=== PATIENT | male | born 1945 | race Caucasian/White ===

== ENCOUNTER 2021-08-25 17:00 | Emergency (ER) | payer OTHER, BC ==
--- OUTSIDE RECORDS SUMMARY | 2021-08-25 17:04 | XMS REPORT | Continuity of Care Document ---
:1945 Author Organization [facility] t Address [address] [place] [address] [address]. [address] [place] [address] Care Team Providers Name Role Phone Vanessa Faria Attending Clinician Unavailable Nick Deleon PT Attending Clinician Unavailable Kimi TAPIA, L Attending Clinician Kenya PT Attending Clinician Unavailable Claudia PT, G Attending Clinician Unavailable Bienvenido INSTRUCTIONAL DESIGN MANAGER, F Attending Clinician Unavailable Doctor Unassigned, Name Attending Clinician Unavailable Physician, Primary or Family Admitting Clinician Unavailabl e Payers Payer Name Policy Type Policy Number Effective Date Expiration Date S ource Problems Condition Condition Condition Status Onset Resolution Last Treating Co mments Source Name Details Category Date Date Treatment Clinician Date Low back Low back Disease Active 2014-09 Unive rs pain pain 0-01 ity of without without 00:00: [place] sciatica sciatica 00 Medica l Branch Chronic Chronic Disease Active 2014-09 Univers atrial atrial 0-01 [place] Lower GI Lower GI Disease Active 2014-09 Unive rs bleed bleed 0-01 ity of 00:00: [place] 00 [facility] 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-30 ity of bleeding bleeding 00:00: [address] Branch Allergies, Adverse Reactions, Alerts Allergy Allergy Status Severity Reaction(s) Onset Inactive Treating Comm ents Source Name Type Date Date Clinician No Known DA Active [facility] 10-06 [place] [facility]ie 00:00: [facility] No Known DA Active [facility] 10-06 [place] Allergie 00:00: [facility] Hydrocod Propensi Active Unknown - Uni vers one-Acet ty to See comments 3-26 it y of aminophe adverse 00:00: [place] n reaction 00 Medical s to Branch drug No Known DA Active [facility] 10-15 [place] Allergie 00:00: [facility] No Known DA Active [facility] 10-15 [place] Allergie 00:00: [facility] s 00 [facility] No Known DA Active [facility]ergie 09-21 [place] 00:00: [facility]ope 00 [facility] No Known DA Active [facility] Allergie 04-08 [place] 00:00: [facility]ope 00 [facility]osp[facility] Social History Social Habit Start Date Stop Date Quantity Comments Source Sex Assigned At Uni versity [facility] Smoking Status Start Date Stop Date Source Never smoker [facility] Medical Branch Medications Ordered Filled Start Stop Current Ordering Indication Dosage Frequency Signature Comments Components Source Medication Medication Date Date Medication? Clinician (SIG) Name Name TAMSULOSIN Yes .4mg Take 0.4 Uni vers HCL 4-03 mg by ity of ([place]OSIN [place] ASPIRIN Yes Take by Univer s (ASPIR-81 4-03 mouth. ity of ORAL) 16:43: [address] Branch rivaroxaban Yes Take by Un neelam (XARELTO 4-03 mouth. ity of ORAL) 16:43: [place] [address] Medical Branch OMEPRAZOLE Yes Take by Uni vers ORAL 4-03 mouth. ity of 16:43: [place] [address] Medical Branch AMIODARONE Yes 200mg Take 200 Un neelam HCL 4-03 mg by ity of (AMIODARONE [place] diltiazem Yes 180mg Take 180 Uni vers (CARDIZEM 4-03 mg by ity of CD) 180 mg 16:43: mouth [place] 24 hr 24 daily. Medical [facility] Branch AMIODARONE 2019-0 Yes 200mg Take 200 Un neelam HCL 4-03 mg by ity of (AMIODARONE [place] TAMSULOSIN Yes .4mg Take 0.4 Uni vers HCL 4-03 mg by ity of (TAMSULOSIN [place] 24 [place] Branch ASPIRIN Yes Take by Univer s (ASPIR-81 4-03 mouth. ity of ORAL) 16:43: [place] [address] Medical Branch rivaroxaban Yes Take by Un neelam (XARELTO 4-03 mouth. ity of ORAL) 16:43: [place] [address] Medical Branch OMEPRAZOLE Yes Take by Uni vers ORAL 4-03 mouth. ity of 16:43: [place] [address] Medical Branch diltiazem Yes 180mg Take 180 Uni vers (CARDIZEM 4-03 mg by ity of CD) 180 mg 16:43: mouth [place] 24 hr 24 daily. Medical capsule Branch TAMSULOSIN Yes .4mg Take 0.4 Uni vers HCL 4-03 mg by ity of (TAMSULOSIN [place] ASPIRIN Yes Take by Univer s (ASPIR-81 4-03 mouth. ity of ORAL) 16:43: [place] [address] Medical Branch rivaroxaban Yes Take by Un neelam (XARELTO 4-03 mouth. ity of ORAL) 16:43: [place] [address] Medical Branch OMEPRAZOLE Yes Take by Uni vers ORAL 4-03 mouth. ity of 16:43: [place] [address] Medical Branch AMIODARONE Yes 200mg Take 200 Un neelam HCL 4-03 mg by ity of (AMIODARONE [place] diltiazem Yes 180mg Take 180 Uni vers (CARDIZEM 4-03 mg by ity of CD) 180 mg 16:43: mouth [place] 24 hr 24 daily. Medical capsule Branch TAMSULOSIN Yes .4mg Take 0.4 Uni vers HCL 4-03 mg by ity of (TAMSULOSIN [place] 24 [place] Branch ASPIRIN Yes Take by Univer s (ASPIR-81 4-03 mouth. ity of ORAL) 16:43: [place] [address] Medical Branch rivaroxaban Yes Take by Un neelam (XARELTO 4-03 mouth. ity of ORAL) 16:43: [place] [address] Medical Branch OMEPRAZOLE Yes Take by Uni vers ORAL 4-03 mouth. ity of 16:43: [place] [address] Medical Branch AMIODARONE Yes 200mg Take 200 Un neelam HCL 4-03 mg by ity of (AMIODARONE [place] diltiazem Yes 180mg Take 180 Uni vers (CARDIZEM 4-03 mg by ity of CD) 180 mg 16:43: mouth [place] 24 hr 24 daily. Medical capsule Branch TAMSULOSIN Yes .4mg Take 0.4 Uni vers HCL 4-03 mg by ity of (TAMSULOSIN [place] ASPIRIN Yes Take by Univer s (ASPIR-81 4-03 mouth. ity of ORAL) 16:43: [place] [address] Medical Branch rivaroxaban Yes Take by Un neelam (XARELTO 4-03 mouth. ity of ORAL) 16:43: [place] [address] Medical Branch OMEPRAZOLE Yes Take by Uni vers ORAL 4-03 mouth. ity of 16:43: [place] [address] Medical Branch AMIODARONE Yes 200mg Take 200 Un neelam HCL 4-03 mg by ity of (AMIODARONE [place] diltiazem Yes 180mg Take 180 Uni vers (CARDIZEM 4-03 mg by ity of CD) 180 mg 16:43: mouth [place] 24 hr 24 daily. Medical capsule Branch TAMSULOSIN Yes .4mg Take 0.4 Uni vers HCL 4-03 mg by ity of (TAMSULOSIN [place] ASPIRIN 0 Yes Take by Univer s (ASPIR-81 4-03 mouth. ity of ORAL) 16:43: [place] [address] Medical Branch rivaroxaban Yes Take by Un neelam (XARELTO 4-03 mouth. ity of ORAL) 16:43: [place] [address] Medical Branch OMEPRAZOLE Yes Take by Uni vers ORAL 4-03 mouth. ity of 16:43: [place] [address] Medical Branch AMIODARONE Yes 200mg Take 200 Un neelam HCL 4-03 mg by ity of (AMIODARONE [place] diltiazem Yes 180mg Take 180 Uni vers (CARDIZEM 4-03 mg by ity of CD) 180 mg 16:43: mouth [place] 24 hr 24 daily. Medical capsule Branch TAMSULOSIN Yes .4mg Take 0.4 Uni vers HCL 4-03 mg by ity of (TAMSULOSIN [place] ASPIRIN Yes Take by Univer s (ASPIR-81 4-03 mouth. ity of ORAL) 16:43: [address] Branch rivaroxaban Yes Take by Un neelam (XARELTO 4-03 mouth. ity of ORAL) 16:43: [address] Branch OMEPRAZOLE Yes Take by Uni vers ORAL 4-03 mouth. ity of 16:43: [address] Branch AMIODARONE Yes 200mg Take 200 Un neelam HCL 4-03 mg by ity of (AMIODARONE 16:[place] diltiazem Yes 180mg Take 180 Uni vers (CARDIZEM 4-03 mg by ity of CD) 180 mg 16:43: mouth [place] 24 hr 24 daily. Medical capsule Branch TAMSULOSIN Yes .4mg Take 0.4 Uni vers HCL 4-03 mg by ity of (TAMSULOSIN 16:[place] [address] [place] [address] Branch ASPIRIN Yes Take by Univer s (ASPIR-81 4-03 mouth. ity of ORAL) 16:43: [place] [address] Medical Branch rivaroxaban Yes Take by Un neelam (XARELTO 4-03 mouth. ity of ORAL) 16:43: [address] Branch OMEPRAZOLE Yes Take by Uni vers ORAL 4-03 mouth. ity of 16:43: [address] Branch AMIODARONE Yes 200mg Take 200 Un neelam HCL 4-03 mg by ity of (AMIODARONE [place] diltiazem Yes 180mg Take 180 Uni vers (CARDIZEM 4-03 mg by ity of CD) 180 mg 16:43: mouth [place] 24 hr 24 daily. Medical capsule Branch TAMSULOSIN Yes .4mg Take 0.4 Uni vers HCL 4-03 mg by ity of (TAMSULOSIN 16:[place] 24 [place] Branch ASPIRIN Yes Take by Univer s (ASPIR-81 4-03 mouth. ity of ORAL) 16:43: [place] [address] Medical Branch rivaroxaban Yes Take by Un neelam (XARELTO 4-03 mouth. ity of ORAL) 16:43: [place] [address] Medical Branch OMEPRAZOLE Yes Take by Uni vers ORAL 4-03 mouth. ity of 16:43: [place] [address] Medical Branch AMIODARONE Yes 200mg Take 200 Un neelam HCL 4-03 mg by ity of (AMIODARONE 16:[place] diltiazem Yes 180mg Take 180 Uni vers (CARDIZEM 4-03 mg by ity of CD) 180 mg 16:43: mouth [place] 24 hr 24 daily. Medical capsule Branch TAMSULOSIN Yes .4mg Take 0.4 Uni vers HCL 4-03 mg by ity of (TAMSULOSIN 16:[place] ASPIRIN Yes Take by Univer s (ASPIR-81 4-03 mouth. ity of ORAL) 16:43: [place] [address] Medical Branch rivaroxaban Yes Take by Un neelam (XARELTO 4-03 mouth. ity of ORAL) 16:43: [place] [address] Medical Branch OMEPRAZOLE Yes Take by Uni vers ORAL 4-03 mouth. ity of 16:43: [place] [address] Medical Branch AMIODARONE Yes 200mg Take 200 Un neelam HCL 4-03 mg by ity of (AMIODARONE 16:[place] diltiazem Yes 180mg Take 180 Uni vers (CARDIZEM 4-03 mg by ity of CD) 180 mg 16:43: mouth [place] 24 hr 24 daily. Medical capsule Branch Procedures Procedure Date / Time Performed Performing Clinician [facility] e PHYSICIAN ORDERS 2019-04-12 05:01:00 Doctor Unassigned, No Unive [facility] Name Medical Branch Encounters Start End Encounter Admission Attending Care Care Encounter Source Date/Time Date/Time Type Type Clinicians Facility Department ID 2020-10-06 2020-10-06 Outpatient JONATHON FariaTO [id number] [facility] 13:45:00 13:45:00 Yannick [id number] [place] [facility] 2020-09-25 2020-09-25 Outpatient JONATHON Faria RADI [id number] [facility] 13:45:00 13:45:00 Yannick [id number] [place] [facility] 2019-05-03 2019-05-03 Ancillary Nick [facility] [id number] 08:38:53 14:16:06 Visit Patricio Deleon [id number] [place] 4.2.7.2.686 Professio [phone] [facility] 179 [facility] 2019-05-03 2019-05-03 Ancillary Regla Bateman [facility] 1 .2.840.114 [id number] [facility] 08:38:53 14:16:06 Visit Aleksandar Bolden 350.1.13.10 [place] [phone] [facility] 179 Branch [facility] 2019-04-29 2019-04-29 Ancillary Tasha Zambrano [facility] 1.2.840.11 [id number] [facility] 08:39:52 09:38:09 Visit Aleksandar Bolden [id number] [place] [phone] [facility] 179 [facility] 2019-04-29 2019-04-29 Ancillary Kenya [facility] 1.2.881.074 [id number] 08:39:52 09:38:09 Visit Tasha Curry 350.1.13.10 [place] 4.2.7.2.686 Professio [phone] [facility] 179 [facility] 2019-04-26 2019-04-26 Ancillary Kiara Taylor [facility] 1.2.840. 114 [id number] [facility] 08:42:52 11:22:17 Visit Aleksandar Bolden 350.1.13.10 [place] [phone] N[facility] dical nal 179 Branch Building 2019-04-26 2019-04-26 Ancillary Claudia [facility] 1.2.498.390 [id number] 08:42:52 11:22:17 Visit Kiara Duvall Patricio 350.1.13.10 [place] 4.2.7.2.686 Professio [phone] [facility] 179 Building 2019-04-22 2019-04-22 Ancillary Bienvenido Justin Portillo [facility] 1.2.840. 114 [id number] [facility] 08:44:02 09:29:02 Visit Aleksandar Bolden 350.1.13.10 [place] [phone] [facility] dical nal 179 Branch Building 2019-04-22 2019-04-22 Ancillary Bienvenido [facility] 1.2.651.522 [id number] 08:44:02 09:29:02 Visit Justin Curry 350.1.13.10 [place] 4.2.7.2.686 Professio [phone] [facility] 179 Building 2019-04-19 2019-04-19 Ancillary Justin Faria [facility] 1.2.840. 114 [id number] [facility] 08:46:38 09:31:38 Visit Aleksandar Bolden 350.1.13.10 it[place] [phone] N[place] dical nal 179 Branch Building 2019-04-19 2019-04-19 Ancillary Bienvenido [facility] 1.2.130.037 [id number] 08:46:38 09:31:38 Visit Justin Curry 350.1.13.10 [place] 4.2.7.2.686 Professio [phone] nal 179 Building 2019-04-07 2019-04-18 Ancillary Regla Bateman [facility] 1 .2.840.114 [id number] [facility] 13:49:38 21:54:54 Visit Aleksandar Bolden 350.1.13.10 [place] [phone] [facility] dical nal 179 [facility] 2019-04-07 2019-04-18 Ancillary Nick [facility] 1.2.166.533 [id number] 13:49:38 21:54:54 Visit Patricio Deleon 350.1.13.10 [place] 4.2.7.2.686 Professio [phone] [facility] 179 [facility] 2019-04-15 2019-04-15 Ancillary Justin Faria [facility] 1.2.840. 114 [id number] [facility] 08:46:50 09:31:50 Visit Aleksandar Bolden 350.1.13.10 it[place] [phone] [facility] 179 [facility] 2019-04-12 2019-04-12 Ancillary Justin Faria [facility] 1.2.840. 114 [id number] [facility] 08:51:52 09:36:52 Visit Aleksandar Bolden 350.1.13.10 ity [place] [phone] N[facility] dical [facility] 179 [facility] 2019-04-12 2019-04-12 Orders Doctor FERRO 1.2.840.114 [id number] 00:00:00 00:00:00 Only Unassigned, GIO 350.1.13.10 ity of [place] [facility] 4.2.7.2.686 [place] as [phone] [facility] dany 009 Branch Results Test Description Test Time Test Comments Results Result [facility] e Comments - MRI UPPER EXT 2020-10-09 W/CONT RT 10:22:00 [facility] 1945 Sex: M Patient Name: SABIHA RUEDA Unit No: [id number] EXAMS: CPT CODE: [id number] MRI UPPER EXT W/[place] [address] MRI OF THE RIGHT ARM WITH GADOLINIUM AND ADDITIONAL SEQUENCES DIAGNOSIS: The lesion in the short head of the biceps muscle has been evaluated with gadolinium and postcontrast imaging. Comparison is made with the initial examination from September 25, 2020. The lesion appears smaller on the current examination and the signal characteristics within it have changed consistent with an evolving hematoma and increased methemoglobin. There is only rim enhancement of the lesion and mild enhancement in the surrounding muscle. These findings are most consistent with a resolving intramuscular hematoma without a tumor. COMMENT: Scans were performed with T1 weighting and fat saturation postcontrast in the sagittal, axial and coronal planes and in the axial and sagittal planes with T1 weighting with and without fat saturation before contrast administration. The lesion in the short head of the biceps muscle has evolved as compared with the initial study. No other areas of abnormal enhancement are seen. No other lesions are identified. at 1022 Reported and signed by: Kuldip Black MD CC: Yannick Faria MD Technologist: Marilyn Faria, RT(R) Transcribed D/ (1022) t.SDR.[facility] NAME: SABIHA RUEDA [address] [facility] PHYS: Yannick Yu : 1945 AGE: 75 SEX: M [place], [place] [address] LOC: Y.MRI PHONE #: [phone] EXAM DATE: 10/06/2020 STATUS: DEP CLI FAX #: [phone] RAD #: D/C DT PAGE 1 Signed Report Patient Name: SABIHA RUEDA Unit No: [id number] EXAMS: CPT CODE: [id number] MRI UPPER EXT W/[place] [address] <Continued> Orig Print D/T: S: 10/09/2020 (1025) [place] [facility] NAME: SABIHA RUEDA [address] [facility] PHYS: Yannick Yu : 1945 AGE: 75 SEX: M [place], [place] [address] LOC: Y.MRI PHONE #: [phone] EXAM DATE: 10/06/2020 STATUS: DEP CLI FAX #: [phone] RAD #: D/C DT PAGE 2 Signed Report BLOOD UREA NITROGEN 2020-10-06 14:32:00 Test Item Value Reference Range Interpretation Comme nts BLOOD UREA NITROGEN (test code = BUN) 20 mg/dL 7-18 H SPECIMEN COMMENT: MRI RIGHT SHOULDER WITH CONTRASTCREATININE W ESTIMATED GFR 2020-10-06 14:32:00 Test Item Value Reference Range Interpretation Comments GLOMERULAR FILTRATION 52.6 >60 Unit o f measure: RATE (test code = GFR) mL/mi n/1.73 [id number] Range:Healthy A dults >90 mL/min/1.73 m2 For Chronic Kidney Disease: St age II Mild Dec rease in GFR 6 0-90 Stage III Moderate Decrea se in GFR 30-59 Stage IV Se hui Decrease in GFR 15-29 Stage V Kidney Failur e <15 CREATININE (test code = 1.32 mg/dL 0.55-1.30 H CREAT) SPECIMEN COMMENT: MRI RIGHT SHOULDER WITH CONTRAST- MRI UPPER EX W/O CONT RT 2020-09-26 10:31:00 [facility] 1945 Sex: M Patient Name: SABIHA RUEDA Unit No: [id number] EXAMS: CPT CODE: [id number] MRI UPPER EX W/[place] [address] MRI RIGHT UPPER ARM WITHOUT CONTRAST DIAGNOSIS: 1. There is a large nonspecific intramuscular mass lesion present within the coracoi-brachialismuscle belly and posterior fibers of the biceps muscle belly mid left upper extremity level. The mass measures approximately 6 x 3 x 1.5 cm in size. Increased T1-weighted signal within the mass lesion suggests methemoglobin related to subacute hematoma. This mass is nonspecificand may represent a hematoma related to relatively recent trauma. Please correlate with the clinical examination and history. In the appropriate clinical setting a neoplastic lesion is also considered. This may be further evaluated with MRI with IV contrast and/or ultrasound with Doppler to further characterize the described abnormality. COMMENT: Multiplanar, multisequence MRI is obtained of the left upper arm without contrast. Intramuscular mass lesion as described above. Recommendations are as above. at 1031 Reported and signed by: Jadiel Huber MD CC: Yannick Faria MD Technologist: JEANETTE DALY Transcribed D/ (1031) [facility] [place] [facility] NAME: SABIHA RUEDA [address] [facility] PHYS: Yannick Yu : 1945 AGE: 75 SEX: M [place] [address] LOC: Y.MRI PHONE #: [phone] EXAM DATE: 09/25/2020 STATUS: DEP CLI FAX #: [phone] RAD #: D/C DT PAGE 1 Signed Report Patient Name: SABIHA RUEDA Unit No: [id number] EXAMS: CPT CODE:[id number] MRI UPPER EX W/[place] [address] <Continued> Orig Print D/T: S: 09/26/2020 (1034)[facility] [place] [facility] NAME: SABIHA RUEDA [address] [facility] PHYS: Yannick Yu : 1945GE: 75 SEX: M [place] [address] LOC: Y.MRI PHONE #: [phone] EXAM DATE: 09/25/2020 STATUS: DEP CLI FAX #: [phone] RAD #: D/C DT PAGE 2 Signed Report- XR SHOULDER 1 V [id number] 09:45:00 Patient Name: SABIHA RUEDA Unit No: [id number] EXAMS: CPT CODE: [id number] XR SHOULDER [address] [place] [address] SINGLE AP VIEW OF THE RIGHT SHOULDER Comment: The patient is status post total right shoulder arthroplasty. The prosthesis appears to be in good position. at 0945 Reported and signed by: Jadiel Huber MD CC: Yannick Faria MD Technologist: SAPPHIRE ROMAN, RT(R) Transcribed D/ (0945) YanethGVG [facility] NAME: SABIHA RUEDA [address] [facility] PHYS: Yannick Yu : 1945 AGE: 73 SEX: M [place] [address] LOC: Y.303 A PHONE #: [phone] EXAM DATE: 11/03/2018 STATUS: ADM IN FAX #: [phone] RAD #: D/C DT PAGE 1 Signed Report Patient Name: SABIHA RUEDA Unit No: [id number] EXAMS: CPT CODE: [id number] XR SHOULDER 1 V RT [id number] <Continued> Orig Print D/T: S: 11/04/2018 (0949) [facility] NAME: SABIHA RUEDA [address] [facility] PHYS: Yannick Yu : 1945 AGE: 73 SEX: M [place], [place] [address]JCJI NO: [id number] LOC: Y.303 A PHONE #: [phone] EXAM DATE: 11/03/2018 STATUS: ADM IN FAX #: [phone] RAD #: D/C DT PAGE 2 Signed ReportCBC W/MANUAL [id number] 09:26:00 Test Item Value Reference Range Interpretation Comments WHITE BLOOD CELL (test code 13.2 K/mm3 5.7-10.5 H = WBC) RED BLOOD CELL (test code = 4.22 M/mm3 4.2-5.4 N RBC) HEMOGLOBIN (test code = HGB) 11.3 g/dL 12-16 L HEMATOCRIT (test code = HCT) 34.3 % 37-47 L MEAN CELL VOLUME (test code 81 fL 80-98 N = MCV) MEAN CELL HGB (test code = 26.8 pg 27-34 L MCH) MEAN CELL HGB CONCENTRATION 32.9 g/dL 30.8-34.1 N (test code = MCHC) RED CELL DISTRIBUTION WIDTH 12.8 % 11-16 N (test code = RDW) PLT (test code = PLT) 174 K/mm3 130-400 N MEAN PLATELET VOLUME (test 10.5 fL 8.9-12.1 N code = MPV) STAIN ACCEPTABILITY (test STAIN ACCEPTABLE code = STN ACCEPTABLE) CELLS COUNTED (test code = 100 >100 TCC) SEGMENTED NEUTROPHILS (test 90 % 50-65 H code = SEG) BAND NEUTROPHIL (test code = 3 % 0-10 N BAND) LYMPHOCYTE (test code = 3 % 20-40 LL LYMPH) MONOCYTE (test code = MON) 3 % 2-9 N BASOPHIL (test code = BASO) 1 % 0.3-1.0 N NUCLEATED RED BLOOD CELL 0 % 0-0 N (test code = NRBC) BASIC METABOLIC [id number] 06:50:00 Test Item Value Reference Range Interpretation Comments SODIUM (test code = 140 mmol/L 136-145 N NA) POTASSIUM (test code = 4.4 mmol/L 3.5-5.1 N K) CHLORIDE (test code = 105.0 mmol/L 98-107 N CL) CARBON DIOXIDE (test 25.6 mmol/L 21-32 N code = CO2) GLUCOSE (test code = 147 mg/dL 70-110 H GLU) BLOOD UREA NITROGEN 11 mg/dL 7-18 N (test code = BUN) GLOMERULAR FILTRATION 72.8 >60 Unit o f measure: RATE (test code = GFR) mL/mi n/1.73 [id number] Range:Healthy Adults >90 mL/min/1.73 m2 For Chronic Kidney Disease: St age II Mild Decrease in GFR 60-90 St age III Moderate Decrease in GFR 30-59 Stage IV Severe Decre ase in GFR 15- 29 Stage V Kidney Failure <15 CREATININE (test code 1.00 mg/dL 0.55-1.30 N = CREAT) CALCIUM (test code = 8.2 mg/dL 8.2-10.1 N CA) CBC W/MANUAL [id number] 06:03:00 Test Item Value Reference Range Interpretation Comments WHITE BLOOD CELL (test code = WBC) 13.2 K/mm3 5.7-10.5 H RED BLOOD CELL (test code = RBC) 4.22 M/mm3 4.2-5.4 N HEMOGLOBIN (test code = HGB) 11.3 g/dL 12-16 L HEMATOCRIT (test code = HCT) 34.3 % 37-47 L MEAN CELL VOLUME (test code = MCV) 81 fL 80-98 N MEAN CELL HGB (test code = MCH) 26.8 pg 27-34 L MEAN CELL HGB CONCENTRATION (test 32.9 g/dL 30.8-34.1 N code = MCHC) RED CELL DISTRIBUTION WIDTH (test 12.8 % 11-16 N code = RDW) PLT (test code = PLT) 174 K/mm3 130-400 N MEAN PLATELET VOLUME (test code = 10.5 fL 8.9-12.1 N MPV) STAIN ACCEPTABILITY (test code = STN ACCEPTABLE) CELLS COUNTED (test code = TCC) >100 SEGMENTED NEUTROPHILS (test code = % 50-65 SEG) LYMPHOCYTE (test code = LYMPH) % 20-40 NUCLEATED RED BLOOD CELL (test 0 % 0-0 N code = NRBC) CBC W/AUTO [id number] 06:03:00 Test Item Value Reference Range Interpretation Comments WHITE BLOOD CELL (test 13.2 K/mm3 5.7-10.5 H code = WBC) RED BLOOD CELL (test 4.22 M/mm3 4.2-5.4 N code = RBC) HEMOGLOBIN (test code = 11.3 g/dL 12-16 L HGB) HEMATOCRIT (test code = 34.3 % 37-47 L HCT) MEAN CELL VOLUME (test 81 fL 80-98 N code = MCV) MEAN CELL HGB (test code 26.8 pg 27-34 L = MCH) MEAN CELL HGB 32.9 g/dL 30.8-34.1 N CONCENTRATION (test code = MCHC) RED CELL DISTRIBUTION 12.8 % 11-16 N WIDTH (test code = RDW) PLT (test code = PLT) 174 K/mm3 130-400 N MEAN PLATELET VOLUME 10.5 fL 8.9-12.1 N (test code = MPV) NEUTROPHIL % (test code 91.0 % 45-70 H = NT%) LYMPHOCYTE % (test code 3.6 % 20-40 L = LY%) MONOCYTE % (test code = 4.8 % 3-10 N MO%) EOSINOPHIL % (test code 0.0 % 1-5 L = EO%) BASOPHIL % (test code = 0.1 % 0.0-1.1 N BA%) NEUTROPHIL # (test code 12.05 K/mm3 2.00-7.50 H = NT#) LYMPHOCYTE # (test code 0.47 K/mm3 1.50-4.00 L = LY#) MONOCYTE # (test code = 0.63 K/mm3 0.2-0.8 N MO#) EOSINOPHIL # (test code 0.00 K/mm3 0.04-0.4 L = EO#) BASOPHIL # (test code = 0.01 K/mm3 0.02-0.10 L BA#) MANUAL DIFF REQUIRED YES MANUAL DIFF MANUAL DIFF (test code = MDIFF) REQUIRED . NUCLEATED RED BLOOD CELL 0 % 0-0 N (test code = NRBC) CBC W/MANUAL [id number] 06:03:00 Test Item Value Reference Range Interpretation Comments STAIN ACCEPTABILITY (test code = STN ACCEPTABLE) CELLS COUNTED (test code = TCC) >100 SEGMENTED NEUTROPHILS (test code = SEG) % 50-65 LYMPHOCYTE (test code = LYMPH) % 20-40 PROTHROMBIN [id number] 12:36:00 Test Item Value Reference Range Interpretation Comments PROTHROMBIN TIME 22.2 secs 10.1-12.5 H PATIENT (test code = PTP) INTERNATIONAL NORMAL 1.96 <2.0 RECOMME NDED THERAPEUTIC RATIO (test code = RANGE FOR ORAL INR) ANTICOAGULANTTR EATMENT: CONDI TION INRProphylaxis of venous thrombos is in 2.0 - 3.0 high-risk medic al or surgical patientsTreatme nt of venous thrombos is 2.0 - 3.0Prevention o f embolism 2.0 - 3.0Prevention o f recurrent embol ism, or 3.0 - 4. 5 patients with mechanical pros thetic intravascular v carrasquillo SPECIMEN COMMENT: ON XARELTOIS PATIENT ON ANTICOAGULANTS ? YLIST ANTICOAGULANT/ANTI PLT MEDICATION :OtherHas Lab been notified if Patient is on Heparin Drip? NOIf Yes, order CBC, OCCULT BLOOD, PT every other day N THROMBOPLASTIN TIME [id number] 12:36:00 Test Item Value Reference Range Interpretation Comments PTT ACTIVATED (test 49.1 secs 24.9-37.0 HH VERIFIED BY REPEAT code = APTT) ANALYSIS.CRITIC AL VALUE CALLED TO ABDULLAHI CHOUDHARY/DR. MCCARTY NREAD BACK & CONFIRME D? JUNIOR Jarquin.LAB.[facility] 10/15 1236 SPECIMEN COMMENT: ON XARELTOIS PATIENT ON ANTICOAGULANTS ? YLIST ANTICOAGULANT/ANTI PLT MEDICATION :OtherHas Lab been notified if Patient is on Heparin Drip? NOIf Yes, order CBC, OCCULT BLOOD, PT every other day N COMPREHENSIVE METABOLIC [id number] 12:24:00 Test Item Value Reference Range Interpretation Comments SODIUM (test code = 141 mmol/L 136-145 N NA) POTASSIUM (test code = 3.5 mmol/L 3.5-5.1 N K) CHLORIDE (test code = 104.0 mmol/L 98-107 N CL) CARBON DIOXIDE (test 23.5 mmol/L 21-32 N code = CO2) GLUCOSE (test code = 109 mg/dL 70-110 N GLU) BLOOD UREA NITROGEN 11 mg/dL 7-18 N (test code = BUN) GLOMERULAR FILTRATION 58.5 >60 Unit o f measure: RATE (test code = GFR) mL/mi n/1.73 [id number] Range:Healthy Adults >90 mL/min/1.73 m2 For Chronic Kidney Disease: St age II Mild Decrease in GFR 60-90 St age III Moderate Decrease in GFR 30-59 Stage IV Severe Decre ase in GFR 15- 29 Stage V Kidney Failure <15 CREATININE (test code 1.21 mg/dL 0.55-1.30 N = CREAT) TOTAL PROTEIN (test 6.0 g/dL 6.4-8.2 L code = PROT) ALBUMIN (test code = 3.6 g/dL 3.4-5.0 N ALB) GLOBULIN (test code = 2.4 g/dL 2.2-4.2 N GLOB) ALBUMIN/GLOBULIN RATIO 1.5 0.7-2.0 N (test code = A/G) CALCIUM (test code = 8.4 mg/dL 8.2-10.1 N CA) BILIRUBIN TOTAL (test 0.57 mg/dL 0.2-1.00 N code = BILT) SGOT/AST (test code = 25.0 U/L 15-37 N AST) SGPT/ALT (test code = 26.0 U/L 12-78 N Please note new ALT) normal range. ALKALINE PHOSPHATASE 88 U/L 46-116 N TOTAL (test code = ALKP) CBC W/AUTO [id number] 11:53:00 Test Item Value Reference Range Interpretation Comments WHITE BLOOD CELL (test code = WBC) 4.5 K/mm3 5.7-10.5 L RED BLOOD CELL (test code = RBC) 4.82 M/mm3 4.2-5.4 N HEMOGLOBIN (test code = HGB) 13.1 g/dL 12-16 N HEMATOCRIT (test code = HCT) 40.2 % 37-47 N MEAN CELL VOLUME (test code = MCV) 83 fL 80-98 N MEAN CELL HGB (test code = MCH) 27.2 pg 27-34 N MEAN CELL HGB CONCENTRATION (test 32.6 g/dL 30.8-34.1 N code = MCHC) RED CELL DISTRIBUTION WIDTH (test 14.0 % 11-16 N code = RDW) PLT (test code = PLT) 175 K/mm3 130-400 N MEAN PLATELET VOLUME (test code = 10.0 fL 8.9-12.1 N MPV) NEUTROPHIL % (test code = NT%) 70.6 % 45-70 H LYMPHOCYTE % (test code = LY%) 19.0 % 20-40 L MONOCYTE % (test code = MO%) 5.3 % 3-10 N EOSINOPHIL % (test code = EO%) 4.2 % 1-5 N BASOPHIL % (test code = BA%) 0.7 % 0.0-1.1 N NEUTROPHIL # (test code = NT#) 3.20 K/mm3 2.00-7.50 N LYMPHOCYTE # (test code = LY#) 0.86 K/mm3 1.50-4.00 L MONOCYTE # (test code = MO#) 0.24 K/mm3 0.2-0.8 N EOSINOPHIL # (test code = EO#) 0.19 K/mm3 0.04-0.4 N BASOPHIL # (test code = BA#) 0.03 K/mm3 0.02-0.10 N MANUAL DIFF REQUIRED (test code = NO MANUAL DIFF MDIFF) PLATELET MORPHOLOGY REQUIRED (test NORMAL code = PLTMR)
[2021-08-25 17:54] LABS: Urine Blood 1+ (Negative); Urine Glucose Negative (Negative); Urine Protein Negative (Negative); Urine Specific Gravity 1.025 (1.005-1.030); Urine pH 5.5 (5.0-7.0)
[2021-08-25 18:22] LABS: Absolute Lymphocytes (CBC) 0.7 K/uL (0.7-4.9); Basophils % 0.6 % (0-1.3); Hematocrit 36.8 % (39.6-49.0); Lymphocytes % 8.9 % (15.3-44.8); MPV 7.9 fL (7.6-11.3); RBC Red Blood Cell Count 5.06 M/uL (4.33-5.43)
[2021-08-25 18:26] LABS: Albumin 3.2 g/dL (3.4-5.0); Bilirubin Direct 0.2 mg/dL (0-0.2); Bilirubin Total 0.7 mg/dL (0.2-1.0); Protein, Total 6.7 g/dL (6.4-8.2)
[2021-08-25] MEDS ORDERED: CEFTRIAXONE 1000 MG/VIAL ONE (18:29)
--- NOTE | 2021-08-25 18:44 | RAD REPORT ---
EXAM DESCRIPTION: US - Scrotum Testicles - 08/25/2021 6:15 pm CLINICAL HISTORY: PAIN COMPARISON: No comparisons FINDINGS: The right testicle 3.7 x 1.7 x 2 cm with volume of 6.6 cc. No intratesticular masses or ev idence of testicular torsion. The left testicle 3.4 by 2.3 x 2.3 cm with volume of 9.2 cc. No intratesticular masses or evidence of testicular torsion. Right epididymal cyst measuring 1.4 cm. Left-sided epididymal cysts are noted. Complex moderate left-sided hydrocele. Small simple appearing right hydrocele. IMPRESSION: Bilateral hydroceles, complex on the left side. Bilateral testicular blood flow is prese nt.
--- NOTE | 2021-08-25 18:50 | ER ---
Nurse's Notes [facility] Name: Rogelio Mckeon Age: 76 yrs Sex: Male : 1945 Arrival Date: 08/25/2021 Time: 17:02 Bed 15 Private MD: Clemente Braun V Diagnosis: Epididymo-orchitis;Hydrocele, unspecified Presentation: 08/25 17:16 Chief complaint: Patient states: went to Dr. Braun on Friday was started on abx iw (cefuroxime), has had fever and body aches and blood in urine , testicles started swelling, abx was changed to amoxicillin and now testicles are more swollen and painful. Coronavirus screen: At this time, the client does not indicate any symptoms associated with coronavirus-19. Ebola Screen: Patient negative for fever greater than or equal to 101.5 degrees Fahrenheit, and additional compatible Ebola Virus Disease symptoms Patient denies exposure to infectious person. Patient denies travel to an Ebola-affected area in the 21 days before illness onset. No symptoms or risks identified at this time. Initial Sepsis Screen: Does the patient meet any 2 criteria? No. Patient's initial sepsis screen is negative. Does the patient have a suspected source of infection? Yes:. Risk Assessment: Do you want to hurt yourself or someone else? Patient reports no desire to harm self or others. Onset of symptoms was August 20, 2021. 17:16 Method Of Arrival: Ambulatory iw 17:16 Acuity: SILVINA 3 iw Triage Assessment: 17:18 : Reports swollen scrotum. jg9 Historical: - Allergies: 17:19 No Known Allergies; iw - PMHx: 17:18 Atrial Fib; Hernia; iw - Immunization history:: Client reports receiving the 2nd dose of the Covid vaccine, Client reports receiving the 1st dose of the Covid vaccine, Pneumococcal vaccine is up to date, Flu vaccine is up to date. - Social history:: Patient/guardian denies using alcohol, street drugs, The patient lives with family, Smoking status: Patient denies any tobacco usage or history of. - Family history:: not pertinent. Screenin:25 Abuse screen: Denies threats or abuse. Denies injuries from another. Nutritional jg9 screening: No deficits noted. Tuberculosis screening: No symptoms or risk factors identified. Fall Risk None identified. Assessment: 17:25 General: Appears in no apparent distress. Behavior is calm, cooperative, appropriate jg9 for age. Pain: Complains of pain in pelvis-scrotum Pain began 2-3 days ago. Is continuous, Alleviated by rest, cold application, Aggravated by increased activity, Noted to be Also complains of no other associated symptoms. Neuro: No deficits noted. Cardiovascular: No deficits noted. Respiratory: No deficits noted. GI: No deficits noted. EENT: No deficits noted. Derm: No deficits noted. Musculoskeletal: No deficits noted. Vital Signs: 17:16 BP 129 / 100; Pulse 68; Resp 16; Temp 98.9; Pulse Ox 98% on R/A; Weight 81.65 kg; iw Height 5 ft. 11 in. (180.34 cm); 17:45 BP 128 / 76; Pulse 63; Resp 17 S; Pulse Ox 100% on R/A; jg9 18:30 BP 136 / 63; Pulse 61; Resp 17 S; Pulse Ox 100% on R/A; jg9 18:50 BP 132 / 70; Pulse 64; Resp 14; Pulse Ox 100% on R/A; jg9 17:16 Body Mass Index 25.10 (81.65 kg, 180.34 cm) iw ED Course: 17:02 Patient arrived in ED. as 17:02 Clemente Braun MD is Private Physician. as 17:18 Triage completed. iw 17:25 Arm band placed on right wrist. jg9 17:25 Patient has correct armband on for positive identification. Bed in low position. Call jg9 light in reach. Warm blanket given. 17:26 Carlos Liang MD is Attending Physician. ma2 17:35 Virginia Delong is Primary Nurse. jg9 17:45 Inserted saline lock: 22 gauge in right antecubital area, using aseptic technique. jg9 18:15 US Scrotum Testicles In Process Unspecified. EDMS 18:39 Resting quietly. Awaiting lab results, Awaiting radiology results. Pt visited by . jg9 18:49 Ernie Floyd MD is Referral Physician. ma2 18:51 Resting quietly. Awaiting disposition. jg9 18:59 No provider procedures requiring assistance completed. jg9 19:00 IV discontinued. jg9 Administered Medications: 18:45 Drug: Rocephin (cefTRIAXone) 1 grams Route: IV; Rate: calculated rate; Site: left 9 antecubital; 18:52 Follow up: Response: No adverse reaction jg9 19:00 Follow up: IV Status: Completed infusion; IV converted to saline lock jg9 Outcome: 18:49 Discharge ordered by MD. ardon 18:59 Discharged to home ambulatory, with significant other. jg9 18:59 Condition: stable 18:59 Discharge instructions given to patient, significant other, Instructed on discharge instructions, Demonstrated understanding of instructions, follow-up care, medications, Prescriptions given X 2. 19:01 Patient left the ED. jg9 Signatures: Dispatcher [employer] EDKathy Ames Irene, RN RN Carlos Green MD MD ma2 Gilmore, Jennifer jg9 Corrections: (The following items were deleted from the chart) 17:19 17:16 Chief complaint: Patient states: went to Dr. Braun on Friday was started on abx , iw has had fever and body aches and blood in urine , testicles started swelling, abx was changed adn now testicles are more swollen and painful iw
--- NOTE | 2021-08-25 18:50 | EDPHYS ---
Physician Documentation [facility] [place], [place] Name: Rogelio Mckeon Age: 76 yrs Sex: Male : 1945 Arrival Date: 08/25/2021 Time: 17:02 Bed 15 Private MD: Clemente Braun V ED Physician Carlos Liang HPI: 08/25 18:01 This 76 yrs old Male presents to ER via Ambulatory with complaints of Urinary Problem - ma2 blood. 18:01 The patient presents with swelling, that is moderate, Left testicles. Onset: The ma2 symptoms/episode began/occurred gradually, 1 day(s) ago. Associated signs and symptoms: Pertinent negatives: constipation, dysuria, hematuria, vomiting. Severity of symptoms: At their worst the symptoms were moderate, in the emergency department the symptoms are unchanged. The patient has not experienced similar symptoms in the past. Historical: - Allergies: 17:19 No Known Allergies; iw - PMHx: 17:18 Atrial Fib; Hernia; iw - Immunization history:: Client reports receiving the 2nd dose of the Covid vaccine, Client reports receiving the 1st dose of the Covid vaccine, Pneumococcal vaccine is up to date, Flu vaccine is up to date. - Social history:: Patient/guardian denies using alcohol, street drugs, The patient lives with family, Smoking status: Patient denies any tobacco usage or history of. - Family history:: not pertinent. ROS: 18:01 Constitutional: Negative for fever, chills, and weight loss. ma2 18:01 All other systems are negative. Exam: 18:01 Constitutional: This is a well developed, well nourished patient who is awake, alert, ma2 and in no acute distress. Eyes: Pupils equal round and reactive to light, extra-ocular motions intact. Lids and lashes normal. Conjunctiva and sclera are non-icteric and not injected. Cornea within normal limits. Periorbital areas with no swelling, redness, or edema. ENT: Nares patent. No nasal discharge, no septal abnormalities noted. Tympanic membranes are normal and external auditory canals are clear. Oropharynx with no redness, swelling, or masses, exudates, or evidence of obstruction, uvula midline. Mucous membranes moist. Neck: Trachea midline, no thyromegaly or masses palpated, and no cervical lymphadenopathy. Supple, full range of motion without nuchal rigidity, or vertebral point tenderness. No Meningismus. Chest/axilla: Normal chest wall appearance and motion. Nontender with no deformity. No lesions are appreciated. Cardiovascular: Regular rate and rhythm with a normal S1 and S2. No gallops, murmurs, or rubs. Normal PMI, no JVD. No pulse deficits. Respiratory: Lungs have equal breath sounds bilaterally, clear to auscultation and percussion. No rales, rhonchi or wheezes noted. No increased work of breathing, no retractions or nasal flaring. Abdomen/GI: Soft, non-tender, with normal bowel sounds. No distension or tympany. No guarding or rebound. No evidence of tenderness throughout. Skin: Warm, dry with normal turgor. Normal color with no rashes, no lesions, and no evidence of cellulitis. MS/ Extremity: Pulses equal, no cyanosis. Neurovascular intact. Full, normal range of motion. Neuro: Awake and alert, GCS 15, oriented to person, place, time, and situation. Cranial nerves II-XII grossly intact. Motor strength 5/5 in all extremities. Sensory grossly intact. Cerebellar exam normal. Normal gait. 18:01 : CVA tenderness, is absent, Male external genitalia: normal, swelling, of the left testicle is noted, that is mild, tenderness, that is moderate. Vital Signs: 17:16 BP 129 / 100; Pulse 68; Resp 16; Temp 98.9; Pulse Ox 98% on R/A; Weight 81.65 kg; iw Height 5 ft. 11 in. (180.34 cm); 17:45 BP 128 / 76; Pulse 63; Resp 17 S; Pulse Ox 100% on R/A; jg9 18:30 BP 136 / 63; Pulse 61; Resp 17 S; Pulse Ox 100% on R/A; jg9 18:50 BP 132 / 70; Pulse 64; Resp 14; Pulse Ox 100% on R/A; jg9 17:16 Body Mass Index 25.10 (81.65 kg, 180.34 cm) iw MDM: 17:26 Patient medically screened. ma2 18:01 Differential diagnosis: UTI, prostatitis, urethritis, Likely orchitis, vital signs ma2 within normal limits, patient is already on amoxicillin, today took the first dose. 18:48 Data reviewed: vital signs, nurses notes. Counseling: I had a detailed discussion with [facility] the patient and/or guardian regarding: the historical points, exam findings, and any diagnostic results supporting the discharge/admit diagnosis, the presence of at least one elevated blood pressure reading (>120/80) during this emergency department visit, the need for outpatient follow up. Response to treatment: the patient's symptoms have markedly improved after treatment. 08/25 17:27 Order name: Basic Metabolic Panel; Complete Time: 18:29 ar2 08/25 17:27 Order name: CBC with Diff; Complete Time: 18:39 ma2 08/25 17:27 Order name: US Scrotum Testicles; Complete Time: 18:48 ar2 08/25 17:27 Order name: Hepatic Function; Complete Time: 18:29 ma2 08/25 17:27 Order name: Lipase; Complete Time: 18:29 ar2 08/25 17:54 Order name: Urine Dipstick-Ancillary; Complete Time: 18:29 [facility] 08/25 17:27 Order name: IV Saline Lock; Complete Time: 17:49 ar2 08/25 17:27 Order name: Labs collected and sent; Complete Time: 17:49 ar2 08/25 17:27 Order name: Urine Dipstick-Ancillary (obtain specimen); Complete Time: 18:28 [facility] Administered Medications: 18:45 Drug: Rocephin (cefTRIAXone) 1 grams Route: IV; Rate: calculated rate; Site: left [facility] [place] antecubital; 18:52 Follow up: Response: No adverse reaction [facility] 19:00 Follow up: IV Status: Completed infusion; IV converted to saline lock [facility] Disposition Summary: 08/25/21 18:49 Discharge Ordered Location: Home ma2 Condition: Stable [facility] Diagnosis - Epididymo-orchitis ma2 - Hydrocele, unspecified ma2 Followup: ma2 - With: Ernie Floyd MD - When: Tomorrow - Reason: If symptoms return, Continuance of care Discharge Instructions: - Discharge Summary Sheet ma2 - Orchitis ma2 Forms: - Medication Reconciliation Form ma2 - Thank You Letter ma2 - Antibiotic Education ma2 - Prescription Opioid Use ma2 Prescriptions: - Cipro 500 mg Oral Tablet - take 1 tablet by ORAL route every 12 hours for 7 days; 14 tablet; Refills: 0, ma2 Product Selection Permitted - Diclofenac Sodium 75 mg Oral Tablet Sustained Release - take 1 tablet by ORAL route 2 times per day; 30 tablet; Refills: 0, Product ma2 Selection Permitted Signatures: Dispatcher [employer] Kait Clark, YOLANDE RN iw Campbell Mon, [employer]1 Carlos Liang MD MD ma2 Virginia Delongg9
[2021-08-25 19:18] VITALS: TEMP 98.9
[2021-08-25 19:19] VITALS: O2SAT 100
[2021-08-25 19:22] VITALS: BP 132/70
== END 2021-08-25 19:01 | disposition home or self-care (01) ==
LOC: ER 17:00
DX: N45.3 Epididymo-orchitis (principal); I48.91 Unspecified atrial fibrillation
CPT/HCPCS: 36415; 76870; 80048; 80076; 81003; 83690; 85025; 96374; 99284